=== PATIENT | female | born 1990 | race African-American/Black ===

== ENCOUNTER 2016-12-01 18:39 | Emergency (ER) | payer BC ==
[~2016-12-01] VITALS: Ht 162.6 cm; Wt 68.8 kg
[2016-12-01 18:46] VITALS: TEMP 36.7; Ht 162.6 cm; Wt 68.8 kg
[2016-12-01] MEDS ORDERED: DIPHTHERIA/TETANUS/PERTUSSIS 0.5 ML SYR/VIAL IM. ONE (19:15)
[2016-12-01] MEDS ORDERED: XYLOCAINE 1%/SOD BICARB 20 ML VIAL INFIL ONE (19:15)
[2016-12-01 19:32] VITALS: BP 112/55; PULSE 69; O2SAT 100
--- NOTE | 2016-12-01 20:11 | EMERGENCY ROOM VISIT NOTE ---
History First contact with patient: 19:04 Chief Complaint: LACERATION/CUT (NON-SUTURE) Stated Complaint: CUT LF HAND WHILE CUTTING VEG W/KNIFE Nursing Triage Summary: pt was cutting an avacodo and cut her left hand History of Present Illness The patient is a 26 year old female who presents to the Emergency Room with complaints of a left hand laceration while cutting an avocado tonight. The injury happened approximately one hour ago. She denies any significant bleeding , loss of function, paresthesias or numbness of the left thumb. The patient is [id number]-[id number]-pijfibuo. The patient rates her discomfort a 1 out of 10. The patient is uncertain of her last tetanus immunization. Review of Systems 6 system review was performed and was negative except for pertinent positives and negatives as indicated in history of present illness Past Medical/Surgical History Medical Problems: (1) No significant past medical history Surgical Problems: (1) No history of previous surgery Family History FH: diabetes mellitus FH: hypertension Social History Smoking Status: Never Smoker Alcohol Use: occasionally Marital Status: single Housing Status: lives with roommate Occupation Status: employed Current/Historical Medications No Active Prescriptions or Reported Meds Allergies Coded Allergies: No Known Allergies (Unverified , 12/01/16) Physical Exam Vital Signs Date Time Temp Pulse Resp B/P Pulse Ox O2 Delivery O2 Flow Rate FiO2 12/01/16 19:32 69 16 112/55 100 12/01/16 18:46 36.7 76 18 125/75 99 Room Air Pain Rating (0-10): 0 Physical Exam CONSTITUTIONAL: Healthy and well nourished. Alert and oriented X 3 with positive affect. HEENT: Normocephalic, atraumatic. Pupils equal, round and reactive. MUSCULOSKELETAL: Examination shows a 1 cm laceration on the dorsum of the left thumb base. No active bleeding noted. The patient is able to extend the thumb against resistance. Capillary refill is less than 2 seconds. INTEGUMENTARY: No rash or other significant dermatologic conditions noted. NEUROLOGIC: Left thumb tip is sensory intact. Medical Decision & Procedures Medications Administered Medications (Trade) Dose Ordered Sig/Talib Route Start Time Stop Time Status Last Admin Dose Admin Diphtheria/ Pertussis/Tetanus Vacc (Adacel Inj) 0.5 ml ONCE ONCE IM. 12/01/16 19:15 12/01/16 19:16 DC 12/01/16 19:31 0.5 ML Procedure Laceration repair was performed under local anesthesia after receiving verbal consent from the patient. Using buffered 1% lidocaine without epinephrine, good local anesthesia was administered. The wound was then peripherally cleansed with iodine, then irrigated with normal saline. Examination of the wound does not show any extension into the subcutaneous space. The wound was then approximated using 5-0 nylon simple interrupted sutures. Bacitracin Band- Aid was applied. ED Course Patient history and physical exam were performed. Nurse's notes were reviewed. Laceration repair was performed under local anesthesia. The patient was provided additional verbal and written wound care instructions. Ice and elevation as needed for swelling. Ibuprofen or Tylenol as needed for pain. Suture removal in 12-14 days, or seek reevaluation sooner for any signs of wound infection. The patient was happy with plan of care, voiced understanding of all discharge instructions, and denied any pain at the conclusion of my exam. Impression Primary Impression: Laceration of left hand Departure Information Dispostion Home / Self-Care Condition GOOD Prescriptions No Active Prescriptions or Reported Meds Forms HOME CARE DOCUMENTATION FORM, IMPORTANT VISIT INFORMATION Patient Instructions My [facility] Additional Instructions Keep wound clean and dry. Do not allow any crusting or dried blood to accumulate on sutures. If this occurs, use a 1:1 solution of hydrogen peroxide/ water on a Q-tip to clean the wound. Use an antibiotic ointment for 3-4 days, then let wound dry. Suture removal in 12-14 days. Return sooner for any signs of infection (increasing redness, swelling, drainage). Ibuprofen or Tylenol as needed for pain. Problem Qualifiers Primary Impression: Laceration of left hand Encounter type: initial encounter Foreign body presence: without foreign body Qualified Codes: S61.412A - Laceration without foreign body of left hand , initial encounter
== END 2016-12-01 19:45 | disposition home or self-care (01) ==
LOC: C.EDB 18:40 → C.EDD 19:45
DX: S61.412A Laceration without foreign body of left hand, initial encounter (principal); W26.0XXA Contact with knife, initial encounter; Y93.G1 Activity, food preparation and clean up; Z23 Encounter for immunization; Z83.3 Family history of diabetes mellitus; Z82.49 Family history of ischemic heart disease and other diseases of the circulatory system

== ENCOUNTER 2016-12-05 15:52 | Emergency (ER) | payer BC ==
[~2016-12-05] VITALS: Ht 162.6 cm; Wt 67.5 kg
[2016-12-05 15:54] VITALS: BP 109/71; PULSE 67; TEMP 36.8; O2SAT 98; Ht 162.6 cm; Wt 67.5 kg
--- NOTE | 2016-12-05 16:13 | EMERGENCY ROOM VISIT NOTE ---
ED Visit Note First contact with patient: 15:57 CHIEF COMPLAINT: Wound check left thumb HISTORY of present illness: This 26-year-old female presents the ER for wound check. The patient states she never had stitches before and wants to make sure that she is taking care of the stitches properly that were placed in her left thumb on Saturday. The patient denies any drainage from the wound or any redness. She denies any fever. REVIEW OF SYSTEMS: 6 system review was performed and was negative unless stated otherwise in history of present illness. PMH: The patient is healthy; there is no significant medical or surgical history. SOCIAL HISTORY: Patient is a [employer] student PHYSICAL EXAM: Vital Signs: Were reviewed Reviewed Nurse's notes. GENERAL: 26- year-old female appears in no acute distress. MENTAL Status: Alert and oriented 3. LEFT THUMB: There is a sutured wound on the palmar aspect of the proximal phalanx there is no erythema swelling, or tenderness. There is no crusty buildup. EMERGENCY DEPARTMENT COURSE: The patient was reassured she is taking proper care of the sutures. DIAGNOSIS: Wound recheck left thumb DISCHARGE INSTRUCTIONS AND TREATMENT: He may discontinue the antibiotic ointment. Use of hydrogen peroxide for any crusty buildup. Return to ER on Saturday for removal of the sutures. Current/Historical Medications No Active Prescriptions or Reported Meds Allergies Coded Allergies: No Known Allergies (Unverified , 12/01/16) Vital Signs Date Time Temp Pulse Resp B/P Pulse Ox O2 Delivery O2 Flow Rate FiO2 12/05/16 15:54 36.8 67 18 109/71 98 Room Air Departure Information Prescriptions No Active Prescriptions or Reported Meds Referrals No Doctor, Assigned (PCP) Patient Instructions My [facility]
== END 2016-12-05 16:35 | disposition home or self-care (01) ==
LOC: C.EDB 15:53 → C.EDD 16:35
DX: Z04.8 Encounter for examination and observation for other specified reasons (principal)